=== PATIENT | female | born 1980 | race Caucasian/White ===

== ENCOUNTER 2016-08-09 15:29 | Emergency (ER) | payer OTHER ==
[~2016-08-09] VITALS: Ht 162.6 cm; Wt 63.0 kg
[~2016-08-09 15:29] MED LIST: ALBUAER19 INH; CHOL20009 PO; CYM60 PO; DSY/150 PO; LEVO25TA5 PO; LRS20 PO; MULT-506 PO; OXYC-653 PO; PROC1TAB5 PO; SRQ300 PO; TOPI100T20 PO
[2016-08-09 15:39] VITALS: TEMP 36.4; Ht 162.6 cm; Wt 63.0 kg
[2016-08-09] MEDS ORDERED: SUMA1INJ5 INJ (15:59)
[2016-08-09] MEDS ORDERED: MECL1TAB42 PO (15:59)
[2016-08-09] MEDS ORDERED: DULO60CA44 PO (15:59)
[2016-08-09] MEDS ORDERED: MULT-239 PO (15:59)
[2016-08-09] MEDS ORDERED: VNTHFA/IN INH (15:59)
[2016-08-09] MEDS ORDERED: TOPI200T14 PO (15:59)
[2016-08-09] MEDS ORDERED: TRAZ100T29 PO (15:59)
[2016-08-09] MEDS ORDERED: TOPI50TA16 PO (15:59)
[2016-08-09] MEDS ORDERED: OXYC1TAB3 PO (15:59)
[2016-08-09 16:27] LABS: URINE APPEARANCE CLOUDY (CLEAR); URINE BILIRUBIN NEG (NEG); URINE COLOR YELLOW; URINE EPITHELIAL CELL AUTO >30 /lpf (0-5); URINE NITRITE NEG (NEG); URINE SPECIFIC GRAVITY 1.014 (1.000-1.030); UROBILINOGEN NEG (NEG); ZZUR CULT IF INDIC CLEAN CATCH YES
[2016-08-09 16:31] LABS: MANUAL MICROSCOPIC REQUIRED? NO; REVIEW REQ? YES
[2016-08-09 17:00] VITALS: BP 124/72; PULSE 72; O2SAT 98
--- NOTE | 2016-08-09 17:13 | DIAGNOSTIC IMAGING REPORT ---
THORACIC SPINE 3 VIEWS, LUMBAR SPINE 5 VIEWS HISTORY: Left side back pain COMPARISON: Lumbar spine 06/29/2012. Thoracic spine 11/06/2005 FINDINGS: There is no fracture. No subluxation. Electronic stimulator leads terminate at the T6 level. The leads appear intact. Mild degenerative disc disease at T7-T8. Mild levoscoliosis within the lower thoracic and lumbar spine. Posterior decompression fusion at L5-S1 with pedicle screws and rods. The hardware appears intact. An intrauterine device is noted within the mid pelvis. Moderate facet degenerative changes L4-L5. Disc spaces within the lumbar spine are preserved. A stimulator pack is again noted within the right gluteal soft tissues. IMPRESSION: 1. No fracture or subluxation within the thoracic or lumbar spine. 2. Mild levoscoliosis within the lower thoracic and lumbar spine. 3. Posterior decompression and fusion at L5-S1. 4. Mild disc space narrowing at T7-T8. Electronically signed by: Waldemar Smith M.D. 08/09/2016 5:11 PM Dictated Date/Time: 08/09/2016 5:08 PM
[2016-08-09] MEDS ORDERED: CIPR-255 PO (17:45)
[2016-08-09] MEDS ORDERED: CYCL10TA6 PO (17:45)
[2016-08-09] MEDS ORDERED: NARA2.5T2 PO (19:01)
[2016-08-09] MEDS ORDERED: PROM25SU28 PR (19:13)
--- NOTE | 2016-08-09 23:10 | EMERGENCY ROOM VISIT NOTE ---
History First contact with patient: 15:42 Chief Complaint: BACK PAIN Stated Complaint: SEVERE BACK PAIN-PAIN DOWN LEGS History of Present Illness The patient is a 36 year old female who presents to the Emergency Room with complaints of intermittent mid thoracic back pain that has been waxing and waning over the past few days. The patient has a history of lower lumbar issues with multiple surgeries and spinal stimulator placement. The patient states that her is comfort has primarily been the left side of her back. She has not had fever or chills. She recently followed up with her surgeon, who felt the patient was doing well. Additionally the patient states that she has had some dysuria symptoms for the past few days. The patient does not have new injury or trauma. She does take oxycodone and Cymbalta for her chronic pain. She rates her discomfort a 5/10. Review of Systems More than 10 systems were reviewed and otherwise negative with the exception of history of present illness. Past Medical/Surgical History Medical Problems: (1) Anxiety (2) Asthma (3) Asthma, Unspecified (4) Back pain (5) Chronic back pain (6) Depression (7) Endometriosis determined by laparoscopy (8) IUD (intrauterine device) in place (9) Migraine (10) Migraines Surgical Problems: (1) Previous back surgery (2) S/P appendectomy (3) S/P knee surgery Family History Asthma FATHER BROTHER Social History Smoking Status: Never Smoker Alcohol Use: none Drug Use: none Marital Status: single Occupation Status: employed Current/Historical Medications Scheduled Ciprofloxacin Hcl (Cipro), 500 MG PO BID Cyclobenzaprine Hcl (Flexeril), 10 MG PO TID Duloxetine Hcl (Cymbalta), 60 MG PO DAILY Levothyroxine Sodium (Levothyroxine Sodium), 25 MCG PO QAM Multiple Vitamins W/ Minerals (Therapeutic M), 1 TAB PO DAILY Sumatriptan Succinate (Sumatriptan Succinate), 1 DOSE INJ PRN UD Topiramate (Topamax), 200 MG PO BID Topiramate (Topamax), 50 MG PO BID Trazodone Hcl (Trazodone), 50-150 MG PO HS Scheduled PRN Albuterol Hfa (Ventolin Hfa), 2 PUFFS INH Q4 PRN for Pain Baclofen (Baclofen), 20 MG PO QID PRN for Muscle Spasm Meclizine Hcl (Meclizine Hcl), 1 TAB PO TID PRN for Dizziness or Vertigo Naratriptan Hcl (Amerge), 2.5 MG PO UD PRN for Headache Oxycodone Ir (Roxicodone Ir), 5 MG PO Q4H PRN for Severe Pain Promethazine Hcl (Phenergan Suppository), 25 MG MT Q6H PRN for Nausea Allergies Coded Allergies: Sulfa Antibiotics (Verified Allergy, Intermediate, hives, 11/19/15) Sulfamethoxazole w/Trimethoprim (Verified Allergy, Intermediate, HIVES, ) Morphine (Verified Allergy, Mild, rash streak thru venous pathway, 11/19/15 ) Trimethoprim (Verified Allergy, Unknown, 11/19/15) Physical Exam Vital Signs Date Time Temp Pulse Resp B/P (MAP) Pulse Ox O2 Delivery O2 Flow Rate FiO2 08/09/16 17:00 72 16 124/72 98 Room Air 08/09/16 15:39 36.4 76 16 115/73 98 Room Air Pain Rating (0-10): 0 Physical Exam VITALS: Vitals are noted on the nurse's note and reviewed by myself. Vital signs stable. GENERAL: Well-developed, well-nourished, white female, who is in no acute distress and resting comfortably. Patient is cooperative with the examination. HEAD: Normocephalic atraumatic. HEART: Regular rate and rhythm without murmurs gallops or rubs. LUNGS: Clear to auscultation bilaterally without wheezes, rales or rhonchi. No retractions or accessory muscle use.. BACK: There is a palpable spinal stimulator in the right lower back. There is no significant spinal process step-off. There is some mid thoracic tenderness to the left with what appears to be a small spasm. No CVA tenderness. Negative straight leg raise bilateral ABDOMEN: Positive normal bowel sounds x 4. Soft, nontender, without masses or organomegaly. No guarding or rebound tenderness. MUSCULOSKELETAL: No muscle atrophy, erythema, or edema noted. Full range of motion without joint tenderness in all extremities. Medical Decision & Procedures ER Provider Diagnostic Interpretation: THORACIC SPINE 3 VIEWS, LUMBAR SPINE 5 VIEWS HISTORY: Left side back pain COMPARISON: Lumbar spine 06/29/2012. Thoracic spine 11/06/2005 FINDINGS: There is no fracture. No subluxation. Electronic stimulator leads terminate at the T6 level. The leads appear intact. Mild degenerative disc disease at T7-T8. Mild levoscoliosis within the lower thoracic and lumbar spine. Posterior decompression fusion at L5-S1 with pedicle screws and rods. The hardware appears intact. An intrauterine device is noted within the mid pelvis. Moderate facet degenerative changes L4-L5. Disc spaces within the lumbar spine are preserved. A stimulator pack is again noted within the right gluteal soft tissues. IMPRESSION: 1. No fracture or subluxation within the thoracic or lumbar spine. 2. Mild levoscoliosis within the lower thoracic and lumbar spine. 3. Posterior decompression and fusion at L5-S1. 4. Mild disc space narrowing at T7-T8. Laboratory Results Test 08/09/16 16:00 Urine Color YELLOW Urine Appearance CLOUDY (CLEAR) Urine pH 7.0 (4.5-7.5) Urine Specific [place] 1.014 (1.000-1.030) Urine Protein NEG (NEG) Urine Glucose (UA) NEG (NEG) Urine Ketones NEG (NEG) Urine Occult Blood TRACE (NEG) Urine Nitrite NEG (NEG) Urine Bilirubin NEG (NEG) Urine Urobilinogen NEG (NEG) Urine Leukocyte Esterase SMALL (NEG) Urine WBC (Auto) 10-30 /hpf (0-5) Urine RBC (Auto) 0-4 /hpf (0-4) Urine Hyaline Casts (Auto) 1-5 /lpf (0-5) Urine Epithelial Cells (Auto) >30 /lpf (0-5) Urine Bacteria (Auto) 4+ (NEG) Urine Renal Epithelial Cells /lpf (0-5) Urine Test NEG (NEG) ED Course Physical exam and history were performed. Nursing notes and EMR were reviewed. Patient appears to have some left-sided thoracic pain. She is also complaining of some ongoing low back pain and dysuria. The patient does not appear toxic on examination. She does not have obvious neurologic deficit. Because of this I did elect to perform plain films of the mid and low back. X-rays do not show evidence of new fractures or acute findings. Her stimulator appears to be appropriately positioned. A urine was collected, and is suggestive of a urinary tract infection with culture pending. The patient will be started on Cipro for this. I will also provide her a course of Flexeril as much of her left-sided pain is felt to be spasm in nature. The patient evidently has an appointment tomorrow with her primary care physician. I recommend the patient keep that appointment for further care. Overall she appears to be appropriately medicated at home and should continue her regular medication. She was otherwise invited back to the ER with any new, worsening, or concerning symptoms. The chart was completed utilizing [employer] Speech Voice Recognition Software. Grammatical errors, random word insertions, pronoun errors, and incomplete sentences are an occasional consequence of this system due to software limitations, ambient noise, and hardware issues. Any formal questions or concerns about the content, text, or information contained within the body of this dictation should be directly addressed to the provider for clarification. . Medical Decision Differential diagnosis: Etiologies such as musculoskeletal, disc herniation, fracture, aortic disease, metastatic disease, cord compression, discitis, infection, renal colic, gastrointestinal, acute exacerbation of chronic back pain, sciatica, cauda equina, as well as others were entertained. Impression Primary Impression: Thoracic back pain Additional Impression: Urinary tract infection Departure Information Dispostion Home / Self-Care Condition GOOD Prescriptions Cyclobenzaprine Hcl (FLEXERIL) 10 Mg Tab 10 MG PO TID for 7 Days, #21 TAB Prov: Julian Earl PA-C 08/09/16 Ciprofloxacin Hcl (CIPRO) 500 Mg Tab 500 MG PO BID for 10 Days, #20 TAB Prov: Julian Earl PA-C 08/09/16 Forms HOME CARE DOCUMENTATION FORM, IMPORTANT VISIT INFORMATION Patient Instructions My [facility] Additional Instructions You were seen and evaluated today on an emergency basis only. This is not a substitute for, or an effort to provide, complete comprehensive medical care. It is not possible to recognize and treat all injuries or illnesses in a single emergency department visit. For this reason it is recommended that you followup with your primary care physician tomorrow as scheduled for ongoing care and evaluation. Ciprofloxacin(Cipro) 500mg: Take one pill twice daily for 10 days for your infection. All antibiotics can cause diarrhea. If this occurs and you feel worse or it does not resolve in 1-2 days follow up with your doctor or return to the Emergency Department as this could be signs of serious underlying problems. If you experience any pain in your tendons or any tendon injury return to the ER for re-evaluation. Any medication can cause an allergic reaction, stop the pills immediately and return to the ER for rash, hives, breathing difficulties, or swelling. Flexeril 1 tablet up to 3 times a day as needed for muscle spasms. No driving, working, or alcohol use with Flexeril. You are welcome to return to the emergency department anytime with new, worsening, or concerning symptoms. Problem Qualifiers
== END 2016-08-09 17:42 | disposition home or self-care (01) ==
LOC: C.EDB 15:31 → C.EDD 17:42
DX: M54.6 Pain in thoracic spine (principal); N39.0 Urinary tract infection, site not specified; M54.5 Low back pain; G89.29 Other chronic pain; R30.0 Dysuria; F41.9 Anxiety disorder, unspecified; F32.9 Major depressive disorder, single episode, unspecified; J45.909 Unspecified asthma, uncomplicated; N80.9 Endometriosis, unspecified; Z82.5 Family history of asthma and other chronic lower respiratory diseases

== ENCOUNTER 2016-09-15 16:02 | Emergency (ER) | payer OTHER ==
[~2016-09-15] VITALS: Ht 162.6 cm; Wt 61.2 kg
[~2016-09-15 16:02] MED LIST changes: -ALBUAER19 INH; -CHOL20009 PO; +CIPR-255 PO; -CYM60 PO; -DSY/150 PO; +DULO60CA44 PO; +MECL1TAB42 PO; +MULT-239 PO; -MULT-506 PO; +NARA2.5T2 PO; -OXYC-653 PO; +OXYC1TAB3 PO; -PROC1TAB5 PO; +PROM25SU28 PR; -SRQ300 PO; +SUMA1INJ5 INJ; -TOPI100T20 PO; +TOPI200T14 PO; +TOPI50TA16 PO; +TRAZ100T29 PO; +VNTHFA/IN INH
[2016-09-15 16:14] VITALS: TEMP 36.7; Ht 162.6 cm; Wt 61.2 kg
[2016-09-15] MEDS ORDERED: CEPHALEXIN MONOHYDRATE 250 MG CAP PO ONE (16:45)
[2016-09-15] MEDS ORDERED: IBUP-1427 PO (16:49)
[2016-09-15] MEDS ORDERED: CEPH500C PO (17:29)
--- NOTE | 2016-09-15 17:29 | EMERGENCY ROOM VISIT NOTE ---
History Report prepared by Rachele: Shannan Moya Under the Supervision of: Dr. Preston Levy D.O. First contact with patient: 16:22 Chief Complaint: WOUND DEHISCENCE Stated Complaint: DRAINAGE FROM INCISION Nursing Triage Summary: pt had battery exchange for nerve stimmulator in R back on 08/30 has had drainage since that time , drainage has increased and swelling and pain have increased today History of Present Illness The patient is a 36 year old female who presents to the Emergency Room with complaints of persistent drainage from a wound starting 2.5 weeks ago. The patient had a battery replaced on August 30. The incision has been draining since then. She has had this surgery before and she usually does not have this drainage. She had some swelling earlier today. She is also having pain. She has taken Motrin to no significant relief. She has not been on antibiotics. Source of History: patient Onset: 2.5 weeks ago Position: back Quality: other (drainage from wound) Timing: other (persistent) Associated Symptoms: + back pain Review of Systems See HPI for pertinent positives & negatives. A total of 10 systems reviewed and were otherwise negative. Past Medical & Surgical Medical Problems: (1) Anxiety (2) Asthma (3) Asthma, Unspecified (4) Back pain (5) Chronic back pain (6) Depression (7) Endometriosis determined by laparoscopy (8) IUD (intrauterine device) in place (9) Migraine (10) Migraines Surgical Problems: (1) Previous back surgery (2) S/P appendectomy (3) S/P knee surgery Family History Asthma FATHER BROTHER Social History Smoking Status: Never Smoker Alcohol Use: none Drug Use: none Marital Status: single Occupation Status: employed Current/Historical Medications Scheduled Duloxetine Hcl (Cymbalta), 60 MG PO DAILY Levothyroxine Sodium (Levothyroxine Sodium), 25 MCG PO QAM Multiple Vitamins W/ Minerals (Therapeutic M), 1 TAB PO DAILY Sumatriptan Succinate (Sumatriptan Succinate), 1 DOSE INJ PRN UD Topiramate (Topamax), 200 MG PO BID Topiramate (Topamax), 50 MG PO BID Trazodone Hcl (Trazodone), 50-150 MG PO HS Scheduled PRN Albuterol Hfa (Ventolin Hfa), 2 PUFFS INH Q4 PRN for Pain Baclofen (Baclofen), 20 MG PO QID PRN for Muscle Spasm Ibuprofen Tab (Motrin), 600 MG PO Q6H PRN for Pain Meclizine Hcl (Meclizine Hcl), 1 TAB PO TID PRN for Dizziness or Vertigo Naratriptan Hcl (Amerge), 2.5 MG PO UD PRN for Headache Oxycodone Ir (Roxicodone Ir), 5 MG PO Q4H PRN for Severe Pain Promethazine Hcl (Phenergan Suppository), 25 MG ND Q6H PRN for Nausea Allergies Coded Allergies: Sulfa Antibiotics (Verified Allergy, Intermediate, hives, 09/15/16) Sulfamethoxazole w/Trimethoprim (Verified Allergy, Intermediate, HIVES, 09/15/16) Morphine (Verified Allergy, Mild, rash streak thru venous pathway, 09/15/16) Trimethoprim (Verified Allergy, Unknown, 09/15/16) Physical Exam Vital Signs Date Time Temp Pulse Resp B/P (MAP) Pulse Ox O2 Delivery O2 Flow Rate FiO2 09/15/16 16:14 36.7 110 20 111/74 98 Room Air Physical Exam CONSTITUTIONAL/VITAL SIGNS: Reviewed / noted above. GENERAL: Non-toxic in appearance. INTEGUMENTARY: Warm, dry, and [place]. HEAD: Normocephalic. EYES: without scleral icterus or trauma. ENT/OROPHARYNX: clear and moist. LYMPHADENOPATHY/NECK: Is supple without lymphadenopathy or meningismus. RESPIRATORY: Lungs clear and equal. CARDIOVASCULAR: Regular rate and rhythm. GI/ABDOMEN: Soft and nontender. No organomegaly or pulsatile mass. No rebound or guarding. Normal bowel sounds. EXTREMITIES: Warm and well perfused. BACK: Surgical wound to the right low back region with minimal erythema and draining clear to slight ferrer seroma like fluid, no purulent drainage or palpable abscess. NEUROLOGICAL: Intact without focal deficits. PSYCHIATRIC: normal affect. MUSCULOSKELETAL: Normally developed with good muscle tone. Medical Decision & Procedures Medications Administered Medications (Trade) Dose Ordered Sig/[place] Route Start Time Stop Time Status Last Admin Dose Admin Cephalexin Monohydrate (Keflex Cap) 500 mg NOW ONCE PO 09/15/16 16:45 09/15/16 16:46 DC 09/15/16 16:56 500 MG ED Course 1626: Previous medical records were reviewed. The patient was evaluated in room C10. A complete history and physical examination was performed. 1637: Keflex 500 mg PO. 1640: On reevaluation, the patient is resting comfortably. I discussed the results and findings with the patient. She verbalized agreement of the treatment plan. She was discharged home. Medical Decision Differential diagnosis: infection, seroma, abscess. This is a 36-year-old female who presents to the ED with a chief complaint of some discharge from a wound in her right back. The patient had the battery changed in her nerve stimulator. She has been having drainage from this wound since the surgery, couple of weeks ago. The patient came in for evaluation of this. She has seen a surgeon as well. There is some mild erythema and some serous type fluid drainage from the wound. There is no obvious purulent drainage or abscess. Because of the [place] drainage, the patient will be started on Keflex. She is felt to be stable for discharge. She has follow-up with her doctor next week. Medication Reconcilliation Current Medication List: was personally reviewed by me Blood Pressure Screening Patient's blood pressure: Normal blood pressure Blood pressure disposition: Did not require urgent referral Impression Primary Impression: Seroma complicating a procedure Scribe Attestation The scribe's documentation has been prepared under my direction and personally reviewed by me in its entirety. I confirm that the note above accurately reflects all work, treatment, procedures, and medical decision making performed by me. Departure Information Dispostion Home / Self-Care Prescriptions Cephalexin Monohydrate (Keflex) 500 Mg Cap 500 MG PO QID, #28 CAP Prov: Preston Levy D.O. 09/15/16 Referrals Navneet Borges M.D. (PCP) Patient Instructions My [facility] Additional Instructions Keflex as prescribed. See your doctors as scheduled. Contact your doctor for worsening symptoms.
[2016-09-15 17:36] VITALS: BP 109/64; PULSE 78; O2SAT 100
== END 2016-09-15 17:37 | disposition home or self-care (01) ==
LOC: C.EDB 16:04 → C.EDC 17:37
DX: G97.63 Postprocedural seroma of a nervous system organ or structure following a nervous system procedure (principal); F41.9 Anxiety disorder, unspecified; J45.909 Unspecified asthma, uncomplicated; G89.29 Other chronic pain; F32.9 Major depressive disorder, single episode, unspecified; Z98.890 Other specified postprocedural states; Z97.5 Presence of (intrauterine) contraceptive device; Z79.899 Other long term (current) drug therapy; Z88.2 Allergy status to sulfonamides; Z88.5 Allergy status to narcotic agent; Z88.8 Allergy status to other drugs, medicaments and biological substances; Z82.5 Family history of asthma and other chronic lower respiratory diseases